=== PATIENT | female | born 1940 | race Caucasian/White ===

== ENCOUNTER 2017-06-17 23:06 | Emergency (ER) | payer OTHER, BC ==
[~2017-06-17] VITALS: Ht 157.5 cm; Wt 47.3 kg
[2017-06-17 23:48] LABS: HEMATOCRIT 39.7 % (36.0-46.0); HEMOGLOBIN 13.5 G/DL (11.9-15.5); MCH 32.2 PG (29.0-34.0); MCV 94.7 FL (83-99); PLATELET COUNT 232 K/uL (156-360); RBC DIS.WIDTH-CV 13.2 % (11.8-14.6); RBC DIS.WIDTH-SD 46.5 % (39-53); RED BLOOD COUNT 4.19 M/uL (3.80-5.20); WHITE BLOOD COUNT 8.4 K/uL (4.1-10.2)
[2017-06-18] LABS: CHLORIDE 104 mEq/L (99-109); SODIUM 140 mEq/L (136-147)
[2017-06-18 00:02] LABS: GLUCOSE 134 mg/dL (70-99)
[2017-06-18 00:06] LABS: CREATININE 0.9 mg/dL (0.6-1.3); GFR ESTIMATE (CALCULATED) > 59 mL/min/
[2017-06-18 00:07] LABS: UREA NITROGEN (BUN) 15 mg/dL (9-23)
[2017-06-18 00:10] LABS: TROP-I INTERPRETATION NEGATIVE; TROPONIN-I < 0.01 ng/mL (0.0-0.30)
[2017-06-18] MEDS ORDERED: NEXIUM40 MG PO (02:04)
[2017-06-18 02:18] VITALS: BP 117/67
== END 2017-06-18 02:19 | disposition home or self-care (01) ==
LOC: EME 23:06
DX: K21.9 Gastro-esophageal reflux disease without esophagitis (principal); K29.00 Acute gastritis without bleeding; L40.9 Psoriasis, unspecified; Z91.040 Latex allergy status
CPT/HCPCS: 71046; 80048; 84484; 85027; 93005; 99281; 99285